=== PATIENT | female | born 2000 | race Hispanic/Latino ===

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

== ENCOUNTER 2024-04-18 17:39 | Emergency (ER) | payer SELFPAY ==
[~2024-04-18] VITALS: Ht 172.7 cm; Wt 111.1 kg
[2024-04-18] MEDS: ONDANSETRON HCL INJ 2MG/ML 2ML 2 MG/ML VIAL IV STA (20:54)
[2024-04-18] MEDS: KETOROLAC TROMETHAMINE 30 MG/ML VIAL IV STA (20:54)
[2024-04-18] MEDS ORDERED: KETOROLAC TROME10 MG PO (23:09)
[2024-04-18 23:20] VITALS: PULSE 74; RESP 16; TEMP 98.7; O2SAT 97
== END 2024-04-18 23:21 | disposition home or self-care (01) ==
LOC: FSED 20:15
DX: M54.50 Low back pain, unspecified (principal); X50.0XXA Overexertion from strenuous movement or load, initial encounter; E11.65 Type 2 diabetes mellitus with hyperglycemia; I10 Essential (primary) hypertension; E66.9 Obesity, unspecified
CPT/HCPCS: 72131; 74176; 80053; 80076; 81003; 81025; 85025; 99284; J1885; J2405